=== PATIENT | female | born 2000 | race Asian ===

== ENCOUNTER 2024-10-11 10:11 | Emergency (ER) | payer MEDICAID, OTHER ==
[~2024-10-11] VITALS: Ht 160 cm; Wt 73.6 kg
--- NOTE | 2024-10-11 10:39 | ECG ---
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
[2024-10-11] MEDS: LORazepam 0.5 MG TAB PO ONE (11:01)
[2024-10-11 11:03] VITALS: BP 153/80; PULSE 56; RESP 20; TEMP 98.3; O2SAT 100
[2024-10-11 11:06] LABS: Basophils # (auto) 0.1 10 ^3/uL (0-0.2); Basophils % (auto) 1.2 % (0.0-2.0); Eosinophils # (auto) 0.2 10 ^3/uL (0-0.8); Eosinophils % (auto) 2.5 % (0.0-7.0); Hematocrit 40.2 % (36.0-46.0); Hemoglobin 13.7 g/dL (12.2-16.2); Lymphocytes # (auto) 1.9 10 ^3/uL (0.4-5.4); Lymphocytes % (auto) 31.9 % (10.0-50.0); Mean Corpuscular Hgb Conc. 34.1 g/dL (32.0-36.0); Monocytes # (auto) 0.5 10 ^3/uL (0-1.3); Monocytes % (auto) 7.8 % (0.0-12.0); Neutrophils # (auto) 3.4 10 ^3/uL (1.6-8.6); Neutrophils % (auto) 56.6 % (37.0-80.0); Nucleated Red Blood Cells % 0.1 %; Platelet Count (auto) 314 10^3/uL (140-450); Red Blood Cells 4.42 10^6/uL (4.0-5.20); Red Cell Distribution Width 13.4 % (11.8-14.3); White Blood Cell 5.9 10^3/uL (4.4-10.8)
[2024-10-11 11:10] LABS: Potassium 4.1 mmol/L (3.5-5.1); Sodium 142 mmol/L (136-145)
[2024-10-11 11:11] LABS: Anion Gap 7 (5-15); Carbon Dioxide 26 mmol/L (20-31)
[2024-10-11 11:12] LABS: Calcium 9.9 mg/dL (8.7-10.4); Chloride 109 mmol/L (98-107)
[2024-10-11 11:16] LABS: BUN/Creatinine Ratio 10.2 (10.0-20.0)
[2024-10-11 11:17] LABS: Blood Urea Nitrogen 9 mg/dL (9-23); Glucose 117 mg/dL (74-106)
[2024-10-11] MEDS ORDERED: HYDR-4924 PO (12:01)
--- NOTE | 2024-10-11 12:02 | ED.PDOC ---
History of Present Illness HPI Comments 23-year-old female brought in by boyfriend complaining of shortness of breath for the last 2 days. Patient states [place] when she began to feel like it was hard to breathe. She denies any chest pain. She also notes he feels as though it is difficult to catch her breath while at rest. She denies any fever, cough, sick contacts, nausea, vomiting, diaphoresis or edema. She denies family or personal history of blood clots, recent prolonged sedentary period, current or hormone use. She does admit she feels very anxious. Chief Complaint: Shortness of Breath Time Seen by MD: 10:18 Primary Care Provider: easton Allergies: Coded Allergies: NO KNOWN ALLERGIES (Unverified , 10/11/24) Home Meds Active Scripts Hydroxyzine HCl (Hydroxyzine Hydrochloride) 25 Mg Tab, 1-2 TAB PO Q6HP PRN, #30 TAB prn anxiety Prov:TITA SMITH MD 10/11/24 Mode of Arrival: Ambulatory Past Medical History PAST MEDICAL HISTORY: Denies Surgical History: Denies all surgeries B[employer] WORKER History: No Pertinent B[employer] WORKER History Family History Family History: Reviewed,noncontributory to illness Social History Smoker: Non-Smoker Alcohol: Denies ETOH Use Drugs: Denies Drug Use Lives In: Home All Other Systems: Reviewed and Negative (Comprehensive systems review obtained and negative except for what is stated in the HPI.) Physical Exam General Appearance: Mild Distress (Tearful, anxious) HEENT: Other (Pupils and face symmetric. Moist mucous membranes.) Neck: Full Range of Motion, Normal Inspection Respiratory: Lungs Clear, No Accessory Muscle Use, No Respiratory Distress, Normal Breath Sounds Cardiovascular: No Edema, No JVD, Regular Rate/Rhythm Breast Exam: Deferred Gastrointestinal: Non Tender, Soft Genitalia: Deferred Pelvic: Deferred Rectal: Deferred Extremities: No calf tenderness, Normal inspection, Normal range of motion, Non-tender, No pedal edema Neurologic: Alert (Oriented x4), Other (Anxious, tearful, ambulatory.) Cerebellar Function: NOT DONE Reflexes: NOT DONE Skin: Dry, Normal Color, Warm Lymphatic: NOT DONE Was a procedure done? Was a procedure done?: No EKG EKG : Comments Sinus rhythm, rate 56, normal intervals, normal axis, normal QRS, no ST/T change. Differential Dx Considerations may include: Anxiety, URI, asthma, COPD, CHF, pneumonia, PE, anemia, among others X-Ray, Labs, Meds, VS Vital Signs Date Time Temp Pulse Resp B/P (MAP) Pulse Ox O2 Delivery O2 Flow Rate FiO2 10/11/24 11:03 56 20 100 Room Air* 0 21 10/11/24 11:03 98.3 56 20 153/80 (104) 100 98.3 10/11/24 10:37 16 97 Room Air* 0 21 10/11/24 10:34 98.0 67 16 126/92 (103) 97 98.0 10/11/24 10:32 56 Lab Test 10/11/24 10:40 Range/Units White Blood Count 5.9 4.4-10.8 10^3/uL Red Blood Count 4.42 4.0-5.20 10^6/uL Hemoglobin 13.7 12.2-16.2 g/dL Hematocrit 40.2 36.0-46.0 % Mean Corpuscular Volume 91.0 80.0-100.0 fL Mean Corpuscular Hemoglobin 31.0 28.0-32.0 pg Mean Corpuscular Hemoglobin Concent 34.1 32.0-36.0 g/dL Red Cell Distribution Width 13.4 11.8-14.3 % Platelet Count 314 140-450 10^3/uL Mean Platelet Volume 7.4 6.9-10.8 fL Neutrophils (%) (Auto) 56.6 37.0-80.0 % Lymphocytes (%) (Auto) 31.9 10.0-50.0 % Monocytes (%) (Auto) 7.8 0.0-12.0 % Eosinophils (%) (Auto) 2.5 0.0-7.0 % Basophils (%) (Auto) 1.2 0.0-2.0 % Neutrophils # (Auto) 3.4 1.6-8.6 10 ^3/uL Lymphocytes # (Auto) 1.9 0.4-5.4 10 ^3/uL Monocytes # (Auto) 0.5 0-1.3 10 ^3/uL Eosinophils # (Auto) 0.2 0-0.8 10 ^3/uL Basophils # (Auto) 0.1 0-0.2 10 ^3/uL Nucleated Red Blood Cells 0.1 % D-Dimer, Quantitative 0.22 0.0-0.49 mg/L FEU Sodium Level 142 136-145 mmol/L Potassium Level 4.1 3.5-5.1 mmol/L Chloride Level 109 H 98-107 mmol/L Carbon Dioxide Level 26 20-31 mmol/L Anion Gap 7 5-15 Blood Urea Nitrogen 9 9-23 mg/dL Creatinine 0.88 0.550-1.02 mg/dL Glomerular Filtration Rate Calc 96 >90 mL/min BUN/Creatinine Ratio 10.2 10.0-20.0 Serum Glucose 117 H 74-106 mg/dL Calcium Level 9.9 8.7-10.4 mg/dL Troponin I High Sensitivity < 3 L </=34 ng/L B-Type Natriuretic Peptide 29.21 0-100 pg/mL Beta HCG, Quantitative 0.4 L 1.5-4.2 mIU/mL Current Medications Medications (Trade) Dose Ordered Sig/Azeem Route Start Time Stop Time Status Last Admin Lorazepam (Ativan Tablet) 1 mg ONCE ONCE PO 10/11/24 10:45 10/11/24 10:46 DC 10/11/24 11:01 PROCEDURE(s): CXR1 - CHEST XRAY 1 VIEW REASON: sob ORDER NUMBER(s): [id number], ACCESSION NUMBER(s): [id number] EXAM: XY CHEST XRAY 1 VIEW HISTORY: sob COMPARISON: None TECHNIQUE: Portable AP view of the chest was performed. FINDINGS: No pneumothorax, consolidative infiltrates, or pulmonary edema. The heart is not enlarged. No fractures are identified about the bony thorax. There is mild upper thoracic dextroscoliosis. IMPRESSION: No acute intrathoracic process. X-Ray, Labs, Meds, VS Comment 23-year-old female with no significant past medical history brought in by boyfriend for evaluation of shortness a breath Vitals remarkable for heart rate 56 Exam remarkable for the appearance of anxiety Rhythm strip independently interpreted by me: Sinus rhythm, rate 56, no CBC is Chest x-ray unremarkable CBC, basic metabolic panel, BNP, troponin, beta hCG and D-dimer unremarkable for any abnormality of acute significance Patient treated with the following in the ED: Ativan 1 mg p.o. On re-evaluation, patient states she is not short of breath and feels better. Vitals are stable. Patient appears stable for discharge with close outpatient f ollow-up with her primary doctor. Rx hydroxyzine Time of 1ST Reevaluation: 11:59 Reevaluation 1ST: Improved Patient Education/Counseling: Diagnosis, Treatment, Need For Follow Up Family Education/Counseling: No Family Present Departure 1 Departure Time of Disposition: 11:59 Impression: Primary Impression: Shortness of breath Additional Impression: Anxiety Disposition: 01 HOME / SELF CARE / HOMELESS Condition: Stable Additional Instructions: Your blood tests, including screening tests for heart attack, heart failure and blood clots in your lungs, were unremarkable. Your chest x-ray was normal. Your EKG was normal. I have prescribed medication for anxiety. Follow-up with your primary doctor in 1-2 days. Return to ER for persistent or worsening symptoms. e-Prescriptions Hydroxyzine HCl (Hydroxyzine Hydrochloride) 25 Mg Tab 1-2 TAB PO Q6HP PRN, #30 TAB prn anxiety Prov: TITA SMITH MD 10/11/24 Discharged With: Significant Other Critical Care Note Critical Care Time?: No Stability Stability form required: No Heart Score Heart Score: Heart Score Response (Comments) Value History N/A 0 EKG N/A 0 Age N/A 0 Risk Factors N/A 0 Troponin N/A 0 Total 0 TITA SMITH MD October 11, 2024 12:02
--- NOTE | 2024-10-11 12:26 | DVH ---
EXAM: XY CHEST XRAY 1 VIEW HISTORY: sob COMPARISON: None TECHNIQUE: Portable AP view of the chest was performed. FINDINGS: No pneumothorax, consolidative infiltrates, or pulmonary edema. The heart is not enlarged. No fractur es are identified about the bony thorax. There is mild upper thoracic dextroscoliosis. IMPRESSION: No acute intrathoracic process.
== END 2024-10-11 12:52 | disposition home or self-care (01) ==
LOC: ER 10:15
DX: R06.02 Shortness of breath (principal); F41.9 Anxiety disorder, unspecified
CPT/HCPCS: 36415; 71045; 80048; 83880; 84484; 84702; 85025; 85379; 93005